=== PATIENT | female | born 1960 | race Caucasian/White ===

== ENCOUNTER 2016-07-04 21:57 | Emergency (ER) | payer BC, OTHER ==
[~2016-07-04] VITALS: Ht 172.7 cm; Wt 63.5 kg
[2016-07-04] MEDS ORDERED: TRAMADOL 50 MG50 MG (22:15)
[2016-07-04] MEDS ORDERED: CYMBALTA30 MG PO (22:16)
[2016-07-04] MEDS ORDERED: ZYRTEC10 M5 (22:16)
[2016-07-04] MEDS ORDERED: NAPROSYN500 MG PO (22:16)
[2016-07-04] MEDS ORDERED: HORMONE MED (22:16)
[2016-07-04 22:26] LABS: URINE BILIRUBIN NEGATIVE (Negative); URINE BLOOD TRACE (Negative); URINE COLOR YELLOW; URINE GLUCOSE-RANDOM* NEGATIVE (Negative); URINE KETONES NEGATIVE (Negative); URINE NITRITE NEGATIVE (Negative); URINE PROTEIN (DIPSTICK) NEGATIVE (Negative); URINE SPECIFIC GRAVITY <= 1.005 (1.003-1.035); URINE UROBILINOGEN 0.2 E.U./dl (0.2-1.0)
[2016-07-04 22:35] LABS: CASTS None Seen /LPF (None Seen); CRYSTALS None Seen /LPF (None Seen); SQUAMOUS 0-3 Few /LPF (0-3)
[2016-07-04 22:36] LABS: BACTERIA 1-9 Few /HPF (None Seen); URINE RBC 0-2 Rare /HPF (0-2); URINE WBC 0-5 Rare /HPF (0-5)
[2016-07-04 22:47] LABS: ABSOLUTE NEUTROPHILS 2.7 thou/uL (1.4-8.2); BASOPHILS 0.5 % (0.0-2.0); EOSINOPHILS 3.5 % (0.0-3.0); HEMATOCRIT 40.1 % (37.0-47.0); HEMOGLOBIN 13.7 gm/dL (12.0-15.0); LYMPHOCYTES 12.7 % (24.0-44.0); MCH 30.7 pg (26.0-34.0); MCHC 34.3 g/dL (28.0-37.0); MCV 89.6 fL (80.0-100.0); MONOCYTES 5.3 % (1.0-8.0); PLATELET COUNT 133 thou/uL (150-400); RBC 4.47 mil/uL (4.20-5.00); RDW 12.8 % (10.5-14.5); WBC 3.4 thou/uL (4.0-11.0)
[2016-07-04 22:48] LABS: MANUAL DIFF NO
[2016-07-04 22:53] LABS: CREATININE 0.7 mg/dL (0.6-1.0)
[2016-07-04 22:57] LABS: TOTAL BILIRUBIN 0.7 mg/dL (<0.1-1.0); TOTAL PROTEIN 6.8 g/dL (6.4-8.2)
[2016-07-05] MEDS ORDERED: GOLYTELY4000 M1 GT (00:07)
[2016-07-05 00:20] VITALS: BP 114/78
== END 2016-07-05 00:22 | disposition home or self-care (01) ==
LOC: ER 21:57
PROVIDERS: Physician Assistant
DX: R10.31 Right lower quadrant pain (principal); Z88.1 Allergy status to other antibiotic agents